=== PATIENT | male | born 1985 | race Caucasian/White ===

== ENCOUNTER 2017-09-24 02:41 | Emergency (ER) | payer SELFPAY ==
[~2017-09-24] VITALS: Ht 170.2 cm; Wt 89.9 kg
[2017-09-24 02:49] VITALS: TEMP 36.7; Ht 170.2 cm; Wt 89.9 kg
--- NOTE | 2017-09-24 03:05 | EMERGENCY ROOM VISIT NOTE ---
History Report prepared by Abhilash: Carly Tavares Under the Supervision of: Dr. Autumn Bass D.O. First contact with patient: 02:53 Chief Complaint: NAUSEA Stated Complaint: LIGHTHEADED,NAUSEA,ANXIOUS History of Present Illness The patient is a 32 year old male who presents to the Emergency Room with complaints of persistent general lightheadedness for two hours. He also reports nausea. He is unsure if it is related to an anxiety attack. He notes that he was going to go to bed and notes the lightheadedness worsened when lying down. He notes vomiting. He denies any caffeine use. He denies any illicit drug or alcohol use. He notes that he was fine and ate during the day. He has a history of anxiety. He denies taking any medication for his anxiety. He reports issues with anxiety once a week. He takes Albuterol and Prilosec. He has a history of asthma. Source of History: patient Onset: two hours Position: other (general ) Quality: other (lightheadedness) Timing: other (persistent) Modifying Factors (Worsening): other (lying down) Associated Symptoms: + nausea, + vomiting Note: Notes anxiety. Review of Systems See HPI for pertinent positives & negatives. A total of 10 systems reviewed and were otherwise negative. Past Medical & Surgical Medical Problems: (1) Anxiety (2) Asthma (3) Asthmatic bronchitis Family History Diabetes mellitus Social History Smoking Status: Never Smoker Smokeless Tobacco Use: No Alcohol Use: none Drug Use: none Marital Status: single Housing Status: lives with roommate Occupation Status: disabled Current/Historical Medications Scheduled Mometasone Furoate (Asmanex Twisthaler 30 Me), 1 PUFF INH BID Omeprazole (Prilosec), 20 MG PO DAILY Scheduled PRN Albuterol Hfa (Ventolin Hfa), 2 PUFFS INH Q6H PRN for SOB/Wheezing Allergies Coded Allergies: Banana (Verified Allergy, Severe, THROAT SWELLS, 09/24/17) Physical Exam Vital Signs Date Time Temp Pulse Resp B/P (MAP) Pulse Ox O2 Delivery O2 Flow Rate FiO2 09/24/17 04:26 76 20 116/72 99 09/24/17 03:02 84 09/24/17 02:58 74 15 145/81 98 Room Air 09/24/17 02:49 36.7 76 18 125/79 98 Room Air Physical Exam HEENT: Head - normocephalic and atraumatic Pupils are equal, round, and reactive to light. Extraocular eye muscles are intact, and sclera are anicteric. Nose - moist nasal mucosa without discharge. Mouth - moist buccal mucosa. Oropharynx is nonerythematous and there is no tonsillar exudate or edema noted. Piercing through his lips Neck: Supple; no JVD, nuchal rigidity, cervical lymphadenopathy. Heart: Regular rate and rhythm. There is a normal S1 and S2 with no murmurs, clicks, or gallops appreciated. Lungs: Clear to auscultation bilaterally with no wheezes, rales, or rhonchi. Abdomen: Soft, completely nontender, nondistended, with good bowel sounds. There are no palpable pulsatile masses or hepatosplenomegaly. There is no guarding, rigidity, or rebound noted. Extremities: No evidence of cyanosis, clubbing, or edema. There are easily palpable peripheral pulses. Skin: warm and dry with good turgor and no rashes. Medical Decision & Procedures Medications Administered Medications (Trade) Dose Ordered Sig/Thomas Route Start Time Stop Time Status Last Admin Dose Admin Ondansetron HCl (Zofran Odt) 4 mg ONE ONCE PO 09/24/17 03:15 09/24/17 03:16 DC 09/24/17 03:09 4 MG Lorazepam (Ativan Tab) 1 mg NOW STAT SL 09/24/17 03:43 09/24/17 03:44 DC 09/24/17 03:43 1 MG Procedure 0315: Ordered Zofran 4 mg PO 0343: Ordered Ativan 1 mg SL ED Course 0257: Past medical records reviewed. The patient was evaluated in room B10. A complete history and physical exam was performed. 0315: Ordered Zofran 4 mg PO 0341: I reassessed the patient at this time. His nausea and lightheadedness has improved. He feels more anxious. 0343: Ordered Ativan 1 mg SL 0420: I reassessed the patient at this time. He is feeling better and resting comfortably. [facility]. I answered all pertaining questions that he had. He expressed understanding and verbalized agreement. The patient will be discharged home. Medical Decision The patient is a 32 year old male who presents to the ED with lightheadedness. Differential diagnosis includes viral illness, anxiety, and GERD. This is a 32-year-old male patient with a history of anxiety who presents to the emergency department after an episode of lightheadedness, dizziness, and anxiety. The patient admits to moderate sleep deprivation. The patient got relief of the nausea, lightheadedness and anxiousness with the above medications. I strongly encouraged the patient to have close follow-up with the [facility] for his anxiety. He may benefit from antianxiety medications, therapy or counseling. The patient feels much better at the time of discharge. He will be discharged with his friend. He was told return to the emergency department if he has any worsening symptoms. Medication Reconcilliation Current Medication List: was personally reviewed by me Blood Pressure Screening Patient's blood pressure: Normal blood pressure Impression Primary Impression: Anxiety Scribe Attestation The scribe's documentation has been prepared under my direction and personally reviewed by me in its entirety. I confirm that the note above accurately reflects all work, treatment, procedures, and medical decision making performed by me. Departure Information Dispostion Home / Self-Care Referrals No Doctor, Assigned (PCP) Forms HOME CARE DOCUMENTATION FORM, IMPORTANT VISIT INFORMATION Patient Instructions Anxiety Body Response, My [facility] Additional Instructions Follow up at the [facility] for anti-anxiety meds and referral for therapy/counseling. Return to the ER for any worsening symptoms
[2017-09-24] MEDS ORDERED: ONDANSETRON 4MG OD TAB PO ONE (03:15)
[2017-09-24] MEDS ORDERED: LORAZEPAM 1 MG TAB SL STA (03:43)
[2017-09-24] MEDS ORDERED: VNTHFA/IN INH (03:54)
[2017-09-24] MEDS ORDERED: PRLSR20 PO (03:55)
[2017-09-24] MEDS ORDERED: ASMIN/30 INH (03:56)
[2017-09-24 04:26] VITALS: BP 116/72; PULSE 76; O2SAT 99
== END 2017-09-24 04:28 | disposition home or self-care (01) ==
LOC: C.EDB 02:42
DX: F41.9 Anxiety disorder, unspecified (principal); J45.909 Unspecified asthma, uncomplicated; Z79.899 Other long term (current) drug therapy; Z91.018 Allergy to other foods